=== PATIENT | male | born 1935 | race Two or more races ===

== ENCOUNTER 2016-10-29 12:49 | Inpatient (IN) | payer BC, MEDICAID ==
[~2016-10-29] VITALS: Ht 170.2 cm; Wt 118.5 kg
[2016-10-29] MEDS ORDERED: HYDROmorphone HCL 2 MG/ML VL IM ONE (13:45)
[2016-10-29] MEDS ORDERED: ONDANSETRON HCL 4 MG/2 ML VIAL IM ONE (13:45)
[2016-10-29] MEDS ORDERED: SODIUM CHLORIDE 0.9% 1,000 ML IV ONE (14:30)
[2016-10-29 14:54] LABS: Basophils # (auto) 0 uL; Basophils % (auto) 0.1 % (0.0-2.0); DEFINITIVE VIEW TRANSMISSION; Eosinophils # (auto) 0 uL; Eosinophils % (auto) 0.2 % (0.0-7.0); Hematocrit 40.7 % (41.0-53.0); Hemoglobin 13.1 g/dL (13.5-17.5); Lymphocytes # (auto) 1.2 uL; Lymphocytes % (auto) 15.8 % (10.0-50.0); Mean Corpuscular Hgb Conc. 32.3 g/dL (32.0-36.0); Mean Corpuscular Volume 102.4 fL (80.0-100.0); Mean Platelet Volume 8.6 fL (7.4-10.4); Monocytes # (auto) 0.4 uL; Monocytes % (auto) 5.3 % (0.0-12.0); Neutrophils # (auto) 6.1 uL; Neutrophils % (auto) 78.6 % (37.0-80.0); Platelet Count (auto) 151 10^3/uL (140-450); Red Cell Distribution Width 12.4 % (11.6-16.0); White Blood Cell 7.7 10^3/uL (4.4-10.8)
[2016-10-29 15:15] LABS: Albumin 3.3 g/dL (3.4-5.0); BUN/Creatinine Ratio 17.1; Bilirubin, Total 0.6 mg/dL (0.2-1.0); Calcium 8.1 mg/dL (8.5-10.1); Potassium 4.6 mmol/L (3.5-5.1); Total Protein 6.5 g/dL (6.4-8.2)
[2016-10-29] MEDS ORDERED: MORPHINE SULF INJ 2 MG/ML SYRINGE 1ML IV PRN (15:30)
[2016-10-29] MEDS ORDERED: ONDANSETRON HCL 4 MG/2 ML VIAL IV PRN ×2 (15:30→16:00)
[2016-10-29] MEDS ORDERED: CARISOPRODOL 350 MG TAB PO PRN (15:30)
[2016-10-29] MEDS ORDERED: DEXTROSE (50%) 50ML SYRG IV PRN (15:30)
[2016-10-29] MEDS ORDERED: HYDROcodone-ACET 5/325MG TAB PO PRN (15:30)
[2016-10-29 15:44] LABS: Partial Thromboplastin Time 27.3 sec (22.64-33.71)
[2016-10-29 15:49] LABS: INR 1.17 (0.9-1.15)
[2016-10-29] MEDS ORDERED: HYDROmorphone HCL 2 MG/ML VL IV PRN (16:00)
[2016-10-29] MEDS: ACCU-CHEK COMFORT CURVE STRIP VI SCH ×2 (17:33→22:00)
[2016-10-29] MEDS: InsuLIN REG 1unit/0.01ml Soln (100units/ml) SC SCH ×2 (17:33→22:00)
[2016-10-29 19:30] VITALS: BP 108/66
[2016-10-29 20:00] VITALS: BP 108/66
[2016-10-29 22:00] VITALS: BP 108/66
[2016-10-29] MEDS: PREGABALIN CAPSULE 75 MG CAP PO SCH (22:33)
[2016-10-30] MEDS ORDERED: ASPI-231 PO (03:15)
[2016-10-30] MEDS ORDERED: MULTCAP45 PO (03:15)
[2016-10-30] MEDS ORDERED: PREG75CA PO (03:15)
[2016-10-30] MEDS ORDERED: METF-312 PO (03:15)
[2016-10-30] MEDS ORDERED: ATOR80TA PO (03:15)
[2016-10-30 05:00] VITALS: BP 125/56
[2016-10-30] MEDS: ACCU-CHEK COMFORT CURVE STRIP VI SCH ×2 (06:20→11:55)
[2016-10-30] MEDS: InsuLIN REG 1unit/0.01ml Soln (100units/ml) SC SCH ×2 (06:20→11:54)
[2016-10-30 09:00] VITALS: BP 108/53
[2016-10-30] MEDS: PREGABALIN CAPSULE 75 MG CAP PO SCH (10:32)
[2016-10-30 13:00] VITALS: BP 157/109
[2016-10-30] MEDS ORDERED: DEXTROSE (50%) 50ML SYRG IV PRN (14:45)
[2016-10-30 15:46] VITALS: BP 108/53
[2016-10-30] MEDS ORDERED: InsuLIN REG 1unit/0.01ml Soln (100units/ml) SC SCH (18:00)
[2016-10-30] MEDS ORDERED: ACCU-CHEK COMFORT CURVE STRIP VI SCH (18:00)
[2016-10-30] MEDS ORDERED: INSULIN DETEMIR(LEVEMIR) 1unit/0.01ml Soln (100units/ml) SC SCH (22:00)
== END 2016-10-30 16:10 | disposition home or self-care (01) | DRG 562 ==
LOC: ER 12:51 → TELE 12:52 → WEST WING 18:49
PROVIDERS: ADMIT Internal Medicine; ATTEND Internal Medicine Cardiovascular Disease
DX: S42.211A Unspecified displaced fracture of surgical neck of right humerus, initial encounter for closed fracture (principal); S72.91XA Unspecified fracture of right femur, initial encounter for closed fracture; Z68.41 Body mass index [BMI] 40.0-44.9, adult; E66.9 Obesity, unspecified; E78.5 Hyperlipidemia, unspecified; G89.29 Other chronic pain; I10 Essential (primary) hypertension; E11.40 Type 2 diabetes mellitus with diabetic neuropathy, unspecified; M81.0 Age-related osteoporosis without current pathological fracture; G62.9 Polyneuropathy, unspecified; W19.XXXA Unspecified fall, initial encounter; Y93.89 Activity, other specified; Y92.098 Other place in other non-institutional residence as the place of occurrence of the external cause; Y99.8 Other external cause status
CPT/HCPCS: 36415; 73000; 73060; 80053; 82962; 83036; 85025; 85610; 85730; 86850; 86900; 86901; 96360; 96372; 99291; J1815; J2405

== ENCOUNTER → 2017-02-13 | Outpatient (CLI) | payer BC, MEDICAID ==
[~2017-02-13] MED LIST: ASPI-231 PO; ATOR80TA PO; METF-370 PO; MULTCAP45 PO; PREG75CA PO
== END | disposition home or self-care (01) ==
LOC: Rad HDHVI 11:08
PROVIDERS: ATTEND Internal Medicine Cardiovascular Disease
DX: R07.89 Other chest pain (principal); R06.02 Shortness of breath
CPT/HCPCS: 93306

== ENCOUNTER → 2017-02-22 | Outpatient (CLI) | payer BC, MEDICAID ==
[~2017-02-22] VITALS: Ht 172.7 cm; Wt 114.8 kg
[~2017-02-22] MED LIST changes: +DIPYRIDAMOLE (5MG/ML) 10 ML VIAL IV ONE; +DIPYRIDAMOLE 60 MG in D5W 5% 50 ML IV SCH
== END | disposition home or self-care (01) ==
LOC: Rad HDHVI 10:09
PROVIDERS: ATTEND Internal Medicine Cardiovascular Disease
DX: I10 Essential (primary) hypertension (principal); I35.0 Nonrheumatic aortic (valve) stenosis; I51.7 Cardiomegaly; I73.9 Peripheral vascular disease, unspecified; D64.9 Anemia, unspecified; E78.5 Hyperlipidemia, unspecified; E11.9 Type 2 diabetes mellitus without complications
CPT/HCPCS: 78452; 93005; 96374; 96375; A9500; J1245

== ENCOUNTER → 2017-07-22 | Outpatient (CLI) | payer BC, MEDICAID ==
[~2017-07-22] MED LIST changes: -DIPYRIDAMOLE (5MG/ML) 10 ML VIAL IV ONE; -DIPYRIDAMOLE 60 MG in D5W 5% 50 ML IV SCH
== END | disposition home or self-care (01) ==
LOC: Rad HDHVI 12:27
PROVIDERS: ATTEND Internal Medicine Cardiovascular Disease
DX: M16.11 Unilateral primary osteoarthritis, right hip (principal); I70.0 Atherosclerosis of aorta; G12.8 Other spinal muscular atrophies and related syndromes; M25.751 Osteophyte, right hip
CPT/HCPCS: 73700

== ENCOUNTER → 2017-09-30 | Outpatient (CLI) | payer BC, MEDICAID ==
[~2017-09-30] VITALS: Ht 30.5 cm; Wt 106.6 kg
[~2017-09-30] MED LIST changes: +IOHEXOL 350 MG/ML 100ML IJ ONE
[2017-09-30 13:05] VITALS: BP 107/53
[2017-09-30] MEDS: SODIUM CHLORIDE 0.9% 1,000 ML IV SCH (13:30)
[2017-09-30 14:40] VITALS: BP 134/57
== END | disposition home or self-care (01) ==
LOC: Rad HDHVI 12:57
PROVIDERS: ATTEND Internal Medicine Cardiovascular Disease
DX: B20 Human immunodeficiency virus [HIV] disease (principal); M19.90 Unspecified osteoarthritis, unspecified site; R04.2 Hemoptysis
CPT/HCPCS: 82565; 82962; 96360; 96374; G0463; Q9967; 71260; 96361

== ENCOUNTER → 2017-10-30 | Outpatient (CLI) | payer BC, OTHER ==
[~2017-10-30] MED LIST changes: -IOHEXOL 350 MG/ML 100ML IJ ONE
== END | disposition home or self-care (01) ==
LOC: Rad HDHVI 10:48
PROVIDERS: ATTEND Internal Medicine Cardiovascular Disease
DX: E11.9 Type 2 diabetes mellitus without complications (principal); I42.0 Dilated cardiomyopathy
CPT/HCPCS: 93880

== ENCOUNTER → 2017-11-06 | Outpatient (CLI) | payer OTHER ==
[~2017-11-06] MED LIST changes: +ADENOSINE 90 MG/30 ML INJ IV ONE; +ADENOSINE 92 MG in GIVE UN-DILUTED 0 ML IV ONE
[2017-11-06 12:23] LABS: Basophils # (auto) 0 uL; Eosinophils # (auto) 0.1 uL; Hemoglobin 16.3 g/dL (13.5-17.5); Lymphocytes # (auto) 1.6 uL; Monocytes # (auto) 0.3 uL; White Blood Cell 5.7 10^3/uL (4.4-10.8)
[2017-11-06 12:25] LABS: Basophils % (auto) 0.6 % (0.0-2.0); Eosinophils % (auto) 1.2 % (0.0-7.0); Hematocrit 47.3 % (41.0-53.0); Lymphocytes % (auto) 27.5 % (10.0-50.0); Mean Corpuscular Hemoglobin 35.1 pg (28.0-32.0); Mean Corpuscular Hgb Conc. 34.3 g/dL (32.0-36.0); Mean Corpuscular Volume 102.3 fL (80.0-100.0); Neutrophils # (auto) 3.7 uL; Neutrophils % (auto) 64.7 % (37.0-80.0); Nucleated Red Blood Cells % 0.2 %; Platelet Count (auto) 116 10^3/uL (140-450); Red Blood Cells 4.63 10^6/uL (4.5-5.90)
[2017-11-06 12:46] LABS: Albumin 3.8 g/dL (3.4-5.0); BUN/Creatinine Ratio 10.7; Bilirubin, Total 0.8 mg/dL (0.2-1.0); Calcium 9.1 mg/dL (8.5-10.1); Potassium 5.2 mmol/L (3.5-5.1); Total Protein 7.3 g/dL (6.4-8.2)
[2017-11-06 15:41] LABS: Free T4 (Free Thyroxine) 1.33 ng/dL (0.89-1.76); Prostate Specific Antigen 11.49 ng/mL (0.0-4.0)
[2017-11-06 16:46] LABS: Urine Blood Negative /uL (Negative); Urine Specific Gravity 1.013 (1.001-1.035)
== END | disposition home or self-care (01) ==
LOC: Rad HDHVI 09:14
PROVIDERS: ATTEND Internal Medicine Cardiovascular Disease
DX: J44.9 Chronic obstructive pulmonary disease, unspecified (principal); B20 Human immunodeficiency virus [HIV] disease; E78.00 Pure hypercholesterolemia, unspecified; I42.0 Dilated cardiomyopathy; D64.9 Anemia, unspecified; E11.9 Type 2 diabetes mellitus without complications; E03.9 Hypothyroidism, unspecified; E55.9 Vitamin D deficiency, unspecified; R53.81 Other malaise; R97.20 Elevated prostate specific antigen [PSA]; I10 Essential (primary) hypertension; D51.9 Vitamin B12 deficiency anemia, unspecified; N39.0 Urinary tract infection, site not specified
CPT/HCPCS: 36415; 78452; 80053; 80061; 81003; 82306; 82607; 83036; 84153; 84403; 84439; 84443; 85025; 93005; 96374; 96375; A9500; J0153

== ENCOUNTER → 2017-11-08 | Outpatient (CLI) | payer OTHER ==
[~2017-11-08] MED LIST changes: -ADENOSINE 90 MG/30 ML INJ IV ONE; -ADENOSINE 92 MG in GIVE UN-DILUTED 0 ML IV ONE
== END | disposition home or self-care (01) ==
LOC: Rad HDHVI 15:47
PROVIDERS: ATTEND Internal Medicine Cardiovascular Disease
DX: I70.0 Atherosclerosis of aorta (principal)
CPT/HCPCS: 93306

== ENCOUNTER 2018-02-01 10:29 | Inpatient (IN) | payer OTHER ==
[~2018-02-01] VITALS: Ht 170.2 cm; Wt 109.0 kg
[2018-02-01] MEDS ORDERED: SODIUM CHLORIDE 0.9% 1,000 ML IVB ONE (11:41)
[2018-02-01 12:24] LABS: Basophils # (auto) 0 uL; Eosinophils # (auto) 0 uL; Eosinophils % (auto) 0.2 % (0.0-7.0); Hemoglobin 15.2 g/dL (13.5-17.5); Monocytes # (auto) 0.6 uL
[2018-02-01 12:26] LABS: Basophils % (auto) 0.2 % (0.0-2.0); Hematocrit 44.7 % (41.0-53.0); Lymphocytes % (auto) 10.9 % (10.0-50.0); Mean Corpuscular Hemoglobin 34.1 pg (28.0-32.0); Mean Corpuscular Hgb Conc. 34.1 g/dL (32.0-36.0); Mean Corpuscular Volume 100.1 fL (80.0-100.0); Monocytes % (auto) 6.3 % (0.0-12.0); Neutrophils # (auto) 7.9 uL; Neutrophils % (auto) 82.4 % (37.0-80.0); Nucleated Red Blood Cells % 0.1 %; Platelet Count (auto) 82 10^3/uL (140-450); Red Blood Cells 4.46 10^6/uL (4.5-5.90); Red Cell Distribution Width 12.6 % (11.8-14.3); White Blood Cell 9.6 10^3/uL (4.4-10.8)
[2018-02-01 12:45] LABS: INR 1.15 (0.9-1.15); Prothrombin Time 12.5 sec (9.27-12.13)
[2018-02-01 12:47] LABS: Alanine Aminotransferase 23 U/L (16-61); Albumin 3.1 g/dL (3.4-5.0); Anion Gap 7 (5-15); Aspartate Aminotransferase 20 U/L (15-37); BUN/Creatinine Ratio 10.8; Blood Alcohol < 3.0 mg/dL (0-5); Blood Urea Nitrogen 21 mg/dL (7-18); Carbon Dioxide 22 mmol/L (21-32); Chloride 104 mmol/L (98-107); GFR African American 42 mL/min; GFR Non-African American 35 mL/min; Glucose 119 mg/dL (74-106); Sodium 133 mmol/L (136-145)
[2018-02-01 12:56] LABS: Alkaline Phosphatase 109 U/L (45-117); Total Protein 6.7 g/dL (6.4-8.2)
[2018-02-01] MEDS ORDERED: MORPHINE SULFATE 8mg/ml INJ SDV IV PRN (15:30)
[2018-02-01] MEDS ORDERED: SODIUM CHLORIDE 0.9% 1,000 ML IV ONE (15:30)
[2018-02-01] MEDS ORDERED: NITROGLYCERIN 0.4 MG SL TAB SL PRN (15:30)
[2018-02-01 17:43] VITALS: BP 133/59
[2018-02-01] MEDS: metFORMIN HYDROCHLORIDE 500 MG TAB PO SCH (18:30)
[2018-02-01 22:00] VITALS: BP 108/51
[2018-02-01] MEDS ORDERED: PREGABALIN CAPSULE 75 MG CAP PO ONE (22:00)
[2018-02-02 05:00] VITALS: BP 110/45
[2018-02-02] MEDS: metFORMIN HYDROCHLORIDE 500 MG TAB PO SCH ×2 (08:20→17:58)
[2018-02-02] MEDS: MULTIPLE VITAMIN TAB PO SCH (08:21)
[2018-02-02 08:38] LABS: Urine WBC None Seen /hpf (0 - 3)
[2018-02-02 09:00] VITALS: BP 90/39
[2018-02-02 09:04] LABS: Urine Bacteria FEW /hpf (None Seen); Urine Blood Negative /uL (Negative); Urine Specific Gravity 1.014 (1.001-1.035)
[2018-02-02] MEDS ORDERED: ATORVASTATIN 20 MG TAB PO ONE (10:00)
[2018-02-02] MEDS ORDERED: CHOLESTYRAMINE 4 GM POWDER PO ONE (10:00)
[2018-02-02] MEDS ORDERED: ASPirin 81 mg TAB PO ONE (10:00)
[2018-02-02] MEDS: CHOLESTYRAMINE 4 GM POWDER PO SCH ×2 (11:52→21:31)
[2018-02-02] MEDS: metroNIDAZOLE 500 MG TAB PO SCH ×2 (11:52→17:58)
[2018-02-02 13:00] VITALS: BP 117/52
[2018-02-02] MEDS: D5W/SOD CHLO 0.9% 1,000 ML IV SCH (14:40)
[2018-02-02 16:36] VITALS: BP 121/56
[2018-02-02 23:04] VITALS: BP 149/65
[2018-02-03] MEDS: metroNIDAZOLE 500 MG TAB PO SCH ×5 (00:06→23:57)
[2018-02-03 05:32] VITALS: BP 132/51
[2018-02-03] MEDS: D5W/SOD CHLO 0.9% 1,000 ML IV SCH ×3 (06:00→20:45)
[2018-02-03] MEDS: metFORMIN HYDROCHLORIDE 500 MG TAB PO SCH ×2 (08:32→18:00)
[2018-02-03] MEDS: MULTIPLE VITAMIN TAB PO SCH (08:32)
[2018-02-03 09:00] VITALS: BP 142/94
[2018-02-03] MEDS: CHOLESTYRAMINE 4 GM POWDER PO SCH ×2 (10:00→21:57)
[2018-02-03 13:00] VITALS: BP 153/68
[2018-02-03 17:00] VITALS: BP 131/63
[2018-02-03 22:00] VITALS: BP 118/74
[2018-02-03] MEDS ORDERED: EMTRTAB10 OR (23:44)
[2018-02-04 05:57] VITALS: BP 136/71
[2018-02-04] MEDS: metroNIDAZOLE 500 MG TAB PO SCH ×3 (06:15→18:00)
[2018-02-04] MEDS: D5W/SOD CHLO 0.9% 1,000 ML IV SCH ×2 (06:34→16:45)
[2018-02-04] MEDS: metFORMIN HYDROCHLORIDE 500 MG TAB PO SCH ×2 (08:00→18:00)
[2018-02-04 08:29] VITALS: BP 148/57
[2018-02-04] MEDS: MULTIPLE VITAMIN TAB PO SCH (09:03)
[2018-02-04] MEDS: CHOLESTYRAMINE 4 GM POWDER PO SCH ×2 (09:03→22:24)
[2018-02-04 12:34] VITALS: BP 158/78
[2018-02-04 16:26] VITALS: BP 160/72
[2018-02-04 22:00] VITALS: BP 157/76
[2018-02-05] MEDS: metroNIDAZOLE 500 MG TAB PO SCH ×3 (00:52→12:00)
[2018-02-05] MEDS: D5W/SOD CHLO 0.9% 1,000 ML IV SCH ×2 (02:45→12:45)
[2018-02-05 05:30] VITALS: BP_SYST 119; BP_SYST 146; BP_DIAS 62; BP_DIAS 68
[2018-02-05 09:00] VITALS: BP 165/85
[2018-02-05] MEDS: metFORMIN HYDROCHLORIDE 500 MG TAB PO SCH (09:41)
[2018-02-05] MEDS: MULTIPLE VITAMIN TAB PO SCH (09:41)
[2018-02-05] MEDS: CHOLESTYRAMINE 4 GM POWDER PO SCH (09:41)
[2018-02-05 13:00] VITALS: BP 159/70
== END 2018-02-05 14:30 | disposition home health service (06) | DRG 392 ==
LOC: ER 10:29 → EDBD 10:29 → TELE 10:30 → TELE-WESTW 16:56
PROVIDERS: ADMIT Internal Medicine; ATTEND Internal Medicine Cardiovascular Disease
DX: A08.4 Viral intestinal infection, unspecified (principal); E11.22 Type 2 diabetes mellitus with diabetic chronic kidney disease; E11.42 Type 2 diabetes mellitus with diabetic polyneuropathy; I42.9 Cardiomyopathy, unspecified; R55 Syncope and collapse; J44.9 Chronic obstructive pulmonary disease, unspecified; N18.3 Chronic kidney disease, stage 3 (moderate); I12.9 Hypertensive chronic kidney disease with stage 1 through stage 4 chronic kidney disease, or unspecified chronic kidney disease; N40.0 Benign prostatic hyperplasia without lower urinary tract symptoms; I25.10 Atherosclerotic heart disease of native coronary artery without angina pectoris; K21.9 Gastro-esophageal reflux disease without esophagitis; K52.9 Noninfective gastroenteritis and colitis, unspecified; E86.9 Volume depletion, unspecified; K31.9 Disease of stomach and duodenum, unspecified; M19.90 Unspecified osteoarthritis, unspecified site; S00.81XA Abrasion of other part of head, initial encounter; Z79.4 Long term (current) use of insulin; Z82.49 Family history of ischemic heart disease and other diseases of the circulatory system
CPT/HCPCS: 36415; 70450; 71045; 80053; 80320; 81001; 82962; 83735; 84484; 85025; 85610; 85730; 87493; 93005; 94761; 96360; J7042

== ENCOUNTER → 2018-06-02 | Outpatient (CLI) | payer OTHER ==
[~2018-06-02] MED LIST changes: +EMTRTAB10 OR
== END | disposition home or self-care (01) ==
LOC: Rad HDHVI 12:32
PROVIDERS: ATTEND Internal Medicine Cardiovascular Disease
DX: S82.044A Nondisplaced comminuted fracture of right patella, initial encounter for closed fracture (principal); M25.461 Effusion, right knee; R07.81 Pleurodynia; X58.XXXA Exposure to other specified factors, initial encounter; Y93.89 Activity, other specified; Y92.89 Other specified places as the place of occurrence of the external cause; Y99.8 Other external cause status
CPT/HCPCS: 71100; 73562

== ENCOUNTER → 2018-06-10 | Outpatient (CLI) | payer OTHER ==
[~2018-06-10] VITALS: Ht 30.5 cm; Wt 0.5 kg
[~2018-06-10] MED LIST changes: +SILVER SULFADIAZINE 1 % TOPICAL CREAM 50GM TOP ONE
[2018-06-10 11:55] VITALS: BP 115/47
[2018-06-10 12:25] VITALS: BP 115/50
== END | disposition home or self-care (01) ==
LOC: CHF HDHVI 12:00
PROVIDERS: ATTEND Internal Medicine Cardiovascular Disease
DX: S51.811A Laceration without foreign body of right forearm, initial encounter (principal); Z88.1 Allergy status to other antibiotic agents; X58.XXXA Exposure to other specified factors, initial encounter; Y93.89 Activity, other specified; Y92.89 Other specified places as the place of occurrence of the external cause; Y99.8 Other external cause status
CPT/HCPCS: G0463

== ENCOUNTER → 2018-12-01 | Outpatient (CLI) | payer BC ==
[~2018-12-01] MED LIST changes: -SILVER SULFADIAZINE 1 % TOPICAL CREAM 50GM TOP ONE
== END | disposition home or self-care (01) ==
LOC: Rad HDHVI 15:45
PROVIDERS: ATTEND Internal Medicine Cardiovascular Disease
DX: M16.0 Bilateral primary osteoarthritis of hip (principal)